=== PATIENT | female | born 1985 | race African-American/Black ===

== ENCOUNTER 2021-11-18 05:12 | Emergency (ER) | payer BC ==
[~2021-11-18] VITALS: Ht 73.7 cm; Wt 98.0 kg
[2021-11-18] MEDS ORDERED: DOXY100T28 PO (05:51)
[2021-11-18] MEDS ORDERED: OFLO5DRO3 LEFTEYE (05:51)
[2021-11-18 05:59] VITALS: BP 128/74
== END 2021-11-18 06:01 | disposition home or self-care (01) ==
LOC: ER 05:12
DX: H01.006 Unspecified blepharitis left eye, unspecified eyelid (principal)
CPT/HCPCS: 99283